=== PATIENT | male | born 1975 | race Caucasian/White ===

== ENCOUNTER → 2024-10-24 10:51 | Outpatient (REF) | payer OTHER, SELFPAY | LOC: HWRAD 10:51 | PROVIDERS: ATTENDING PHYSICIAN Specialist | DX: R80.9 Proteinuria, unspecified (principal); Q61.2 Polycystic kidney, adult type | CPT/HCPCS: 76775 ==

== ENCOUNTER 2025-02-10 08:49 | Inpatient (IN) | payer OTHER, SELFPAY ==
[2025-02-07 17:12] VITALS: BP 93/66
[2025-02-07 17:58] LABS: Hematocrit 40.1 % (39.0-52.0); Hemoglobin 13.3 g/dL (13.0-18.0); Mean Corp Hgb Conc. 33.2 g/dL (33.0-37.0); Mean Corpuscular Volume 91.1 fL (80.0-94.0); Nucleated Red Blood Cells % 0 % (-); Platelet Count 203 10^3/uL (130-400); Red Cell Dist. Width 13.2 % (11.5-14.5); Urine Character Clear (Clear)
[2025-02-07 18:07] LABS: Urine Squamous Cell 0-2 /LPF (Few)
[2025-02-07 18:09] LABS: Urine White Cell 0-2 /HPF (0-5)
[2025-02-07 18:10] LABS: ALT (SGPT) 33 U/L (0-50); AST (SGOT) 44 U/L (17-59); Albumin 4.5 g/dl (3.5-5.0); Alkaline Phosphatase 42 U/L (38-126); Blood Urea Nitrogen 61 mg/dl (9-20); Calcium 9.7 mg/dl (8.4-10.2); Carbon Dioxide 23 mmol/L (22-30); Chloride 107 mmol/L (98-107); Glucose 124 mg/dl (70-99); Lipase 189 U/L (23-300); Potassium 4.8 mmol/L (3.5-5.1); Sodium 138 mmol/L (135-145); Total Protein 7.1 g/dl (6.3-8.2); eGFR 23.88
[2025-02-07 18:24] VITALS: BP 121/73
[2025-02-07 18:26] VITALS: BP 121/73
[2025-02-07 18:31] VITALS: BMI 28.8
[2025-02-07 19:00] VITALS: BP 116/71
--- NOTE | 2025-02-07 19:25 | ED.GENMED ---
History of Present Illness
<Marycruz Madison NP - Last Filed: 02/08/25 00:36>
General
Chief Complaint: Flank Pain
Source: patient
Exam Limitations: none
Time Seen by Provider: 02/07/25 18:30
Nursing documentation reviewed up to this point in time: agreed with
History of Present Illness
History of Present Illness:
Patient to ED with comlaint of severe right abd. pain. Pain started this AM. Denies fever/chills. Pain does not radiate. States he has felt a 'lump' on right side of abd. for many months. No issues until this AM. Brought to ED by spouse for
eval
Past History
<Marycruz Madison NP - Last Filed: 02/08/25 00:36>
Past History
ED Past Medical History: HTN, Hypercholesterolemia and Other (polycystic kidney disease)
Review of Systems
<Marycruz Madison NP - Last Filed: 02/08/25 00:36>
Review of Systems
Allergies reviewed?: Yes
All Other Systems: ROS reviewed and negative except as documented in HPI and ROS
Constitutional: Reports no symptoms
EENT: Reports no symptoms
Respiratory: Reports no symptoms
Cardiac: Reports no symptoms
ABD/GI: Reports abdominal pain (severe right sided abd. pain)
: Reports no symptoms
Musculoskeletal: Reports no symptoms
Skin: Reports no symptoms
Neurological: Reports no symptoms
Psychiatric: Reports no symptoms
Phy Exam
<Marycruz Madison NP - Last Filed: 02/08/25 00:36>
General Physical Exam
General Presentation: moderate distress
General age: appears stated age
General Skin: warm and dry
General Habitus: normal
General Mental: alert
Cardiovascular Exam
Cardiovascular Exam: regular rate/rhythm and no edema
Gastrointestinal Exam
Gastrointestinal Exam: normal bowel sounds, no pulsatile mass, distended and guarding
Palpation: left upper quadrant: Minimal tenderness, left lower quadrant: Minimal tenderness, right upper quadrant: Severe tenderness and right lower quadrant: Severe tenderness
Musculoskeletal Exam
Musculoskeletal Exam: full ROM and neuro vasc intact
Skin Exam
Skin Exam: normal color, warm/dry and no rash
Psychiatric Exam
Psychiatric Exam: normal mood/affect
Course
<Marycruz Madison NP - Last Filed: 02/08/25 00:36>
Orders/Labs/Results
Orders:
Orders
02/07/25 Breakfast
Regular
At Your Request: Full Participation
Does patient need a safe tray?: No
02/07/25 17:14
CT Abd/pelvis Wo Iv Cont Urgent
Comment:
Reason For Exam: R flank pain radiates to ant R abdomen
02/07/25 17:34
Complete Blood Count/With Diff Urgent
Comprehensive Metabolic Panel Urgent
Lipase Urgent
Urinalysis Reflex To Culture Urgent
Date Specimen was Collected: 02/07/25
Time Specimen was Collected: 17:18
Urine Microscopic Reflex Cult Urgent
Urine Culture Urgent
SVETLANA Source: U
Specimen Description:
Date Specimen was Collected: 02/07/25
Time Specimen was Collected: 17:18
02/07/25 19:34
HYDROmorphone [Dilaudid] 0.5 mg IV NOW STA
Ondansetron Injectable [Zofran] 4 mg IV NOW STA
02/07/25 19:52
CefTRIAXone [Rocephin] 1,000 mg IV NOW STA
02/07/25 19:53
NEPHROLOGY CONSULT Urgent
Consulting Provider: Conrad Luna
Was physician already notified: Yes
02/07/25 20:18
Admit/Transfer Patient As Directed
Co-Sign Provider:
Level of Care: Observation services
Assign to:: Medical/Surgical
Physician / Group: kasi sousa
Diagnosis: polycystic kidney disease
Code Status As Directed
Resuscitation Status: Full Code
PRN Pain Medication Management As Directed
May give lesser potent ordered pain med per pt: Yes
preference::
Protocol:: Medication orders for pain may be administered in a
manner that supports deferring to patient preference
when the pt is:
- Requesting an ordered lesser potent pain medication.
Least to most potent pain medications are defined
as: acetaminophen < NSAID < tramadol < opioids
(morphine, oxycodone, hydromorphone).
- Requesting a lesser dose of the same medication IF
ORDERED.
- Requesting a less intrusive route of administration
if both routes are prescribed by the provider (PO <
IV).
02/07/25 21:18
Acetaminophen [Tylenol] 650 mg PO Q4HPRN PRN
Bisacodyl [Dulcolax] 10 mg RECTAL [id number] PRN
Docusate W/Senna [Senokot-S] 1 tablet PO BIDPRN PRN
Polyethylene Glycol Powder [Miralax] 17 grams PO DAILYPRN PRN
tolvaptan (polycys kidney dis) [Jynarque] 1 ea PO DIRECTED
02/07/25 21:18
Activity As Directed
Activity Level: As Tolerated
Pneumatic Compression Sleeves As Directed
Type: Knee high
Vital Signs As Directed
Frequency: Per unit guidelines
DX Deep Vein Thrombosis Video Routine
02/07/25 23:00
HYDROmorphone [Dilaudid] 1 mg IV Q4HPRN PRN
02/08/25 06:00
Basic Metabolic Panel IN AM
Complete Blood Count/No Diff IN AM
02/08/25 08:00
Allopurinol [Zyloprim] 100 mg PO DAILY
Atorvastatin [Lipitor] 40 mg PO DAILY
Fenofibrate 145 [Tricor] 145 mg PO DAILY
Pantoprazole [Protonix] 40 mg PO DAILY
Sertraline HCl [Zoloft] 100 mg PO DAILY
02/08/25 20:00
CefTRIAXone [Rocephin] 1,000 mg IV Q24H
02/09/25 06:00
Basic Metabolic Panel IN AM
02/10/25 06:00
Basic Metabolic Panel IN AM
Abnormal Lab Results
02/07/25
17:34
WBC 12.5 H 10^3/uL
(4.8-10.8)
RBC 4.40 L 10^6/uL
(4.70-6.10)
Abs Immat Gran (auto) 0.1 H 10^3/uL
(0-0.05)
Absolute Neuts (auto) 10.2 H 10^3/uL
(1.4-6.5)
Absolute Lymphs (auto) 1.1 L 10^3/uL
(1.2-3.4)
Absolute Monos (auto) 1.0 H 10^3/uL
(0.1-0.6)
Neutrophils % 81.9 H %
(42.2-75.2)
Lymphocytes % 8.7 L %
(20.5-51.1)
BUN 61 H mg/dl
(9-20)
Creatinine 3.1 H mg/dL
(0.7-1.3)
Glucose 124 H mg/dl
(70-99)
Ur Occult Blood Reflex 1+ A
(Negative)
Urine RBC 3-6 A /HPF
(0-2)
Urine Bacteria (Reflex) Moderate A
(Negative)
Urine Albumin (Reflex) 2+ A
(Neg - Trace)
02/07/25 17:34
02/07/25 17:34
Vital Signs
Initial and Last Documented VS:
Initial Vital Signs
Temp Pulse Resp BP Pulse Ox
98.5 F 87 18 93/66 97
02/07/25 17:12 02/07/25 17:12 02/07/25 17:12 02/07/25 17:12 02/07/25 17:12
Last Documented Vital Signs
Temp Pulse Resp BP Pulse Ox
99.8 F 82 16 116/69 100
02/07/25 21:26 02/07/25 21:26 02/07/25 21:26 02/07/25 21:26 02/07/25 21:56
<Ld Campos, DO - Last Filed: 02/07/25 20:11>
Orders/Labs/Results
Orders:
Orders
02/07/25 Breakfast
Regular
At Your Request: Full Participation
Does patient need a safe tray?: No
02/07/25 17:14
CT Abd/pelvis Wo Iv Cont Urgent
Comment:
Reason For Exam: R flank pain radiates to ant R abdomen
02/07/25 17:34
Complete Blood Count/With Diff Urgent
Comprehensive Metabolic Panel Urgent
Lipase Urgent
Urinalysis Reflex To Culture Urgent
Date Specimen was Collected: 02/07/25
Time Specimen was Collected: 17:18
Urine Microscopic Reflex Cult Urgent
Urine Culture Urgent
SVETLANA Source: U
Specimen Description:
Date Specimen was Collected: 02/07/25
Time Specimen was Collected: 17:18
02/07/25 19:34
HYDROmorphone [Dilaudid] 0.5 mg IV NOW STA
Ondansetron Injectable [Zofran] 4 mg IV NOW STA
02/07/25 19:52
CefTRIAXone [Rocephin] 1,000 mg IV NOW STA
02/07/25 19:53
NEPHROLOGY CONSULT Urgent
Consulting Provider: Conrad Luna
Was physician already notified: Yes
02/07/25 20:18
Admit/Transfer Patient As Directed
Co-Sign Provider:
Level of Care: Observation services
Assign to:: Medical/Surgical
Physician / Group: kasi sousa
Diagnosis: polycystic kidney disease
Code Status As Directed
Resuscitation Status: Full Code
PRN Pain Medication Management As Directed
May give lesser potent ordered pain med per pt: Yes
preference::
Protocol:: Medication orders for pain may be administered in a
manner that supports deferring to patient preference
when the pt is:
- Requesting an ordered lesser potent pain medication.
Least to most potent pain medications are defined
as: acetaminophen < NSAID < tramadol < opioids
(morphine, oxycodone, hydromorphone).
- Requesting a lesser dose of the same medication IF
ORDERED.
- Requesting a less intrusive route of administration
if both routes are prescribed by the provider (PO <
IV).
02/07/25 21:18
Acetaminophen [Tylenol] 650 mg PO Q4HPRN PRN
Bisacodyl [Dulcolax] 10 mg RECTAL [id number] PRN
Docusate W/Senna [Senokot-S] 1 tablet PO BIDPRN PRN
Polyethylene Glycol Powder [Miralax] 17 grams PO DAILYPRN PRN
tolvaptan (polycys kidney dis) [Jynarque] 1 ea PO DIRECTED
02/07/25 21:18
Activity As Directed
Activity Level: As Tolerated
Pneumatic Compression Sleeves As Directed
Type: Knee high
Vital Signs As Directed
Frequency: Per unit guidelines
DX Deep Vein Thrombosis Video Routine
02/07/25 23:00
HYDROmorphone [Dilaudid] 1 mg IV Q4HPRN PRN
02/08/25 06:00
Basic Metabolic Panel IN AM
Complete Blood Count/No Diff IN AM
02/08/25 08:00
Allopurinol [Zyloprim] 100 mg PO DAILY
Atorvastatin [Lipitor] 40 mg PO DAILY
Fenofibrate 145 [Tricor] 145 mg PO DAILY
Pantoprazole [Protonix] 40 mg PO DAILY
Sertraline HCl [Zoloft] 100 mg PO DAILY
02/08/25 20:00
CefTRIAXone [Rocephin] 1,000 mg IV Q24H
02/09/25 06:00
Basic Metabolic Panel IN AM
02/10/25 06:00
Basic Metabolic Panel IN AM
Abnormal Lab Results
02/07/25
17:34
WBC 12.5 H 10^3/uL
(4.8-10.8)
RBC 4.40 L 10^6/uL
(4.70-6.10)
Abs Immat Gran (auto) 0.1 H 10^3/uL
(0-0.05)
Absolute Neuts (auto) 10.2 H 10^3/uL
(1.4-6.5)
Absolute Lymphs (auto) 1.1 L 10^3/uL
(1.2-3.4)
Absolute Monos (auto) 1.0 H 10^3/uL
(0.1-0.6)
Neutrophils % 81.9 H %
(42.2-75.2)
Lymphocytes % 8.7 L %
(20.5-51.1)
BUN 61 H mg/dl
(9-20)
Creatinine 3.1 H mg/dL
(0.7-1.3)
Glucose 124 H mg/dl
(70-99)
Ur Occult Blood Reflex 1+ A
(Negative)
Urine RBC 3-6 A /HPF
(0-2)
Urine Bacteria (Reflex) Moderate A
(Negative)
Urine Albumin (Reflex) 2+ A
(Neg - Trace)
02/07/25 17:34
02/07/25 17:34
Vital Signs
Initial and Last Documented VS:
Initial Vital Signs
Temp Pulse Resp BP Pulse Ox
98.5 F 87 18 93/66 97
02/07/25 17:12 02/07/25 17:12 02/07/25 17:12 02/07/25 17:12 02/07/25 17:12
Last Documented Vital Signs
Temp Pulse Resp BP Pulse Ox
99.8 F 82 16 116/69 100
02/07/25 21:26 02/07/25 21:26 02/07/25 21:26 02/07/25 21:26 02/07/25 21:56
<Marycruz Madison NP - Last Filed: 02/08/25 00:36>
*Radiology
Radiology exam reviewed: radiology read reviewed
*Pulse Oximetry
SaO2: 97
Oxygen Mode of Delivery: Room air
Patient hypoxic: no
*Critical Care Note
Total Time (30-74mins, 75-104mins- exclusive of procedures): Not Applicable
<Marycruz Madison NP - Last Filed: 02/08/25 00:36>
Update Note
Update Note:
Patient to ED with severe right sided abd. pain. Pain started this AM. History of polycystic kidney disease, follows with Dr. Luna. CT tonight: perinephric soft tissue stranding of gerota's fascia possible related to infection/inflammation. VSS,
he remains afebrile. WBC 12.5. Creat 3.1 (outpatient lab from december 2024 2.84) Case discussed with dr. campos who also evaluated this patient. WIll admit to hospitalist. Dr. Luna consulted, will follow.
ED Attending Note
<Marycruz Madison, LEGAL WORD PROCESSOR - Last Filed: 02/08/25 00:36>
-
Portions of this chart may have been created with voice recognition software.� Occasional wrong word or��sound alike� substitutions may have occurred due to the inherent limitations of voice recognition software.
<Ld Campos DO - Last Filed: 02/07/25 20:11>
ED Attending Note
Patient seen and examined by attending physician: Yes
I performed the substantive portion of visit, reviewed & personally made and approve the management plan that is documented in note by myself or YUSUF.: Yes
ED Attending Note:
Seen with LEGAL WORD PROCESSOR examined independently 49-year male polycystic kidney flank pain fevers labs noted CT noted perhaps a ruptured cyst
Discharge Plan
Departure
Patient Disposition: Admit
Date of Disposition: 02/07/25
Time of Disposition: 19:46
Presentation/result/management discussed w/ accepting MD/DO: Hospitalist
Condition: Fair
Covid-19: Not Applicable
Discharge Problem:
Abdominal pain, Polycystic kidney disease
Interventions
Interventions:
*Risk Screen - Suicide Last Done: 02/07/25 17:12
*General Assessment Last Done: 02/07/25 17:12
*Neglect/Abuse Screening Last Done: 02/07/25 18:31
*ED- Fall Risk Assessment Last Done: 02/07/25 18:31
*ED COVID-19 Vaccine History Last Done: 02/07/25 17:12
*ED Influenza Vaccine History Last Done: 02/07/25 17:12
*Nursing Disposition Last Done: 02/07/25 21:19
OM-Ndwady-Tlidnqklbt Assessment Last Done: 02/07/25 18:32
ED-Male Genitourinary Assessment Last Done: 02/07/25 18:32
[2025-02-07] MEDS: DILAUDID 0.5 MG IV (19:41)
[2025-02-07] MEDS: ZOFRAN 4 MG IV (19:41)
--- NOTE | 2025-02-07 19:54 | HPS.HSE ---
Family Physician
-
Family Physician:
Chief Complaint
-
right sided abdominal apin
History of Present Illness
49 year old with PMH for stage 4 polycystic kidney disease, HLD< HTN presented to us with severe right sided abdominal pain which started today morning. he was nauseous due to the pain and was having trouble breathing.patient stated right sided
abdominal lumps for 2 year which was monitored by his nephrology. Denies fever/chills. he was dizzy. denied chest pain. denied dysuria or hematuria
CT with the impression of Polycystic kidney disease. Innumerable bilateral simple and complex/hyperdense cysts.
No renal or ureteral calculus and no obstructive uropathy.
On the right, there is a linear band of perinephric soft tissue stranding and thickening of Gerota's fascia adjacent to the anterior mid pole and lower pole the right kidney. This could be related to infection/inflammation in the proper clinical
setting, or perhaps related to cyst rupture.
In the anterior lower pole of the right kidney, a low-attenuation mass measuring 6.3 cm transverse is demonstrated, with internal rounded component of increased attenuation measuring 2.6 cm. This could represent a blood clot within a hemorrhagic
cyst. A mass with a solid internal component would be difficult to exclude with certainty. Recommend follow-up nonemergent MRI characterization.
Patient received a dose of ceftriaxone, Dilaudid, Zofran in the ER. Admitting for further management
Medical History
Past Medical History
Past Medical History: Reports Other
Additional Past Medical History:
Hypertension, hyperlipidemia, prediabetes, GERD, anxiety, ventral hernia, periumbilical hernia, kidney stone
Past Surgical History: Reports Other
Additional Past Surgical History:
kidney stone extraction
hernia repair
Social History
Tobacco: Non-smoker
Alcohol: Occasional
Personal:
Living: With Family
Family History
Family History: Not pertinent
Allergies / Home Medications
Allergies reflects when Allergies were last updated in [facility].
Home Medications with original date entered in [facility]
Allergy/Medication List:
Allergies
Allergy/AdvReac Type Severity Reaction Status Date / Time
No Known Allergies Allergy Verified 02/07/25 18:31
Review of Systems
-
Constitutional: Reports No Symptoms
EENT: Reports No Symptoms
Respiratory: Reports No Symptoms
Cardiac: Reports No Symptoms
Abdomen/GI: Reports Abdominal Pain and Nausea
: Reports No Symptoms
Musculoskeletal: Reports No Symptoms
Skin: Reports No Symptoms
Neurological: Reports No Symptoms
Endocrine: Reports No Symptoms
Hematologic/Lymphatic: Reports No Symptoms
Psych: Reports No Symptoms
Physical Exam
Vital Signs
Vital Signs
Temp Pulse Resp BP Pulse Ox
99.1 F 71 16 116/71 98
02/07/25 18:26 02/07/25 18:26 02/07/25 18:26 02/07/25 19:00 02/07/25 19:45
Physical Exam
General: Well Developed, Well Nourished and No Apparent Distress
HEENT: NormoCephalic, Moist mucous membranes and Atraumatic
Respiratory: Clear
Cardiac: S1/S2 and Regular Rhythm; No Murmur or Rub
GI: Soft, Non Tender, Non Distended, Normal Bowel Sounds and Other (lump on the right side of the abdomen); No Organomegaly
Rectal: Deferred by Provider
Musculoskeletal: No Clubbing, No Cyanosis and No Edema
Skin: No Rash
Neuro: AO x 3 and Nonfocal/grossly intact
Psych: Calm
Laboratory Results
-
02/07/25 17:34
02/07/25 17:34
Laboratory Results
Total Bilirubin 0.8 mg/dl (0.2-1.3) 02/07/25 17:34
AST 44 U/L (17-59) 02/07/25 17:34
ALT 33 U/L (0-50) 02/07/25 17:34
Alkaline Phosphatase 42 U/L (38-126) 02/07/25 17:34
Lipase 189 U/L (23-300) 02/07/25 17:34
Data Reviewed
-
CT Scan: Report Reviewed by me
Lab Data: Labs Reviewed by me
Impression/Plan
-
# Severe abdominal pain
# Concern for blood clot within a hemorrhagic cyst
#hxt of stage IV polycystic kidney disease
- WBCs 12.5
-cr 3.1
-IV ceftriaxone continued
-Dilaudid p.o. for pain
-tolvaptan continued
-nephrology consulted
- CT with impression of Polycystic kidney disease. Innumerable bilateral simple and complex/hyperdense cysts. No renal or ureteral calculus and no obstructive uropathy.On the right, there is a linear band of perinephric soft tissue stranding and
thickening of Gerota's fascia adjacent to the anterior mid pole and lower pole the right kidney. This could be related to infection/inflammation in the proper clinical setting, or perhaps related to cyst rupture.
In the anterior lower pole of the right kidney, a low-attenuation mass measuring 6.3 cm transverse is demonstrated, with internal rounded component of increased attenuation measuring 2.6 cm. This could represent a blood clot within a hemorrhagic
cyst. A mass with a solid internal component would be difficult to exclude with certainty. Recommend follow-up nonemergent MRI characterization.
# Essential hypertension
- At present hold lisinopril
# Hyperlipidemia
- Statin, fenofibrate continued
# Gout
- Allopurinol continued
# Anxiety
- Sertraline continued
# GERD
- PPI continued
# DVT prophylaxis
- SCDs CODE STATUS
# CODE STATUS
- Full code
--- NOTE | 2025-02-07 20:01 | W.PN.UPDATE ---
Update Note
Progress Note Update
This note serves as an addendum to the H&P by scooter mechanic YUSUF�
Subha DICK�
HPI
49M HX PCK, HTN, HLD seen at ER:
- BiB spouse
- severe R sided abdomenal non radiating pain
- acut onset of pain this AM.
- Denies fever/chills.
PHX; see above
Relevant VS
Temp Pulse Resp BP Pulse Ox
99.1 F 71 16 116/71 98
02/07/25 18:26 02/07/25 18:26 02/07/25 18:26 02/07/25 19:00 02/07/25 19:45
PE
Gen: moderately distress with pain
HEENT:anicteric
Neck: supple
Lungs: CTA
Cor: RRR S1 S2
Abdomen: Severe tenderness RLQ, Minimal tenderness,LLQ
MARKETING MGR: AAO3
MS: no edema
Relevant data�
02/07/25
17:34
WBC 12.5 H
Hgb 13.3
Sodium 138
Potassium 4.8
Carbon Dioxide 23
BUN 61 H
Creatinine 3.1 H
eGFR 23.88
[address] Abd/pelvis Wo Iv Cont
- Polycystic kidney disease. Innumerable bilateral simple and complex/hyperdense cysts.
- No renal or ureteral calculus and no obstructive uropathy.
- On the right, there is a linear band of perinephric soft tissue stranding and thickening of Gerota's fascia adjacent to the anterior mid pole and lower pole the right kidney. This could be related to infection/inflammation in the proper clinical
setting, or perhaps related to cyst rupture.
- In the anterior lower pole of the right kidney, a low-attenuation mass measuring 6.3 cm transverse is demonstrated, with internal rounded component of increased attenuation measuring 2.6 cm. This could represent a blood clot within a hemorrhagic
cyst.
A mass with a solid internal component would be difficult to exclude with certainty. Recommend follow-up nonemergent MRI characterization.
NO PRIOR hospitalist admission:
ASSESSMENT & PLAN
Pending Rx reconciliation
Concerning for painful R sided acute hemorrhagic +/_ clot cysts of PCK
Questionable infection/inflammation of perinephric soft tissue
- Empiric IV CFTZ
- Narcotic analgesia
- Anti emetics PRN
- Renal consult ( Known to Dr Luna)
Secondary HTN due to PCK
- Hold Lisinopril - due to eGFR 23
- await renal suggestion for BP control
Suspect CKD due to PCK
with element of VINCENZO due to acute hemorrhagic cyst
- current Cr 3.2 - baseline hi 2s
- observe Cr
DVT Px: SCD
Full Code:
OBS MS
[2025-02-07] MEDS: ROCEPHIN 1000 MG IV (20:19)
[2025-02-07 21:21] VITALS: BMI 28.8
[2025-02-07 21:26] VITALS: BP 116/69
--- NOTE | 2025-02-07 21:45 | PTCARENOTE ---
Pt arrived to unit at 2114 from ED on stretcher. Pt ambulated to bed without assistance; hunched posture, gait steady. Pt endorses pain with erect posture, deep inspiration & ambulation. Abdomen is soft & tender, right abdomen warm to touch, left
abdomen temperature consistent with rest of body-pt is afebrile. VSS, See Nursing Shift Assx. Pt updated on plan of care for night, fiance at bedside; both are agreeable to POC. Pt states no further needs at this time.
[2025-02-08] MEDS: DILAUDID 1 MG IV ×6 (00:15→20:04)
[2025-02-08 07:23] LABS: Hematocrit 37.4 % (39.0-52.0); Hemoglobin 12.1 g/dL (13.0-18.0); Mean Corp Hgb Conc. 32.4 g/dL (33.0-37.0); Mean Corpuscular Volume 92.3 fL (80.0-94.0); Platelet Count 180 10^3/uL (130-400); Red Cell Dist. Width 13.5 % (11.5-14.5)
[2025-02-08 07:35] VITALS: BP 100/63
[2025-02-08 08:15] LABS: Blood Urea Nitrogen 55 mg/dl (9-20); Calcium 8.9 mg/dl (8.4-10.2); Carbon Dioxide 22 mmol/L (22-30); Chloride 111 mmol/L (98-107); Estimated Creatinine Clearance 32 ml/min; Glucose 122 mg/dl (70-99); Potassium 4.4 mmol/L (3.5-5.1); Sodium 142 mmol/L (135-145); eGFR 23.88
[2025-02-08] MEDS: PROTONIX 40 MG PO (08:42)
[2025-02-08] MEDS: TRICOR 145 MG PO (08:42)
[2025-02-08] MEDS: ZOLOFT 100 MG PO (08:42)
[2025-02-08] MEDS: ZYLOPRIM 100 MG PO (08:42)
[2025-02-08] MEDS: LIPITOR 40 MG PO (08:42)
--- NOTE | 2025-02-08 10:59 | CM ---
CM following re: discharge planning.
Reviewed pt's chart, met with pt and pt's fiance at bedside.
Pt is a 49 year old male, admitted with OBS status and primary dx of Severe abdominal pain. PMH: tage 4 polycystic kidney disease, HLD, HTN. OBS status reviewed with the pt, OBS letter placed on chart, pt has a copy.
Pt reports he lives with fiance in a condo, no steps to enter, has 2 supportive children. 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
PCP: Pt stated his PCP just retired and he is looking for a new PCP. Pt stated he has resources of PCP offices.
Pharmacy: [facility].
D/C plan: home with anticipated no needs.
CM will follow with discharge plan updates as hospitalization progresses
--- NOTE | 2025-02-08 11:24 | W.PN.HOSP.TC ---
Today's Communication/Plan
-
monitor vitals
see plan
still in pain; cw dilaudid
start IVF
nephrology consulted
monitor renal function
Assessment / Plan
Assessment / Plan
General: Well Developed, Well Nourished and No Apparent Distress
HEENT: NormoCephalic, Moist mucous membranes and Atraumatic
Respiratory: Clear
Cardiac: S1/S2 and Regular Rhythm; No Murmur or Rub
GI: Soft, Non Tender, Non Distended, Normal Bowel Sounds and Other (lump on the right side of the abdomen)
Musculoskeletal:No Edema
Neuro: AO x 3 and Nonfocal/grossly intact
Psych: Calm
Severe abdominal pain
still in lot of pain
# Concern for blood clot within a hemorrhagic cyst
#hxt of stage IV polycystic kidney disease
- WBCs 12.5
-cr 3.1
-IV ceftriaxone continued
-Dilaudid prn for pain
-nephrology consulted
- CT with impression of Polycystic kidney disease. Innumerable bilateral simple and complex/hyperdense cysts. No renal or ureteral calculus and no obstructive uropathy.On the right, there is a linear band of perinephric soft tissue stranding and
thickening of Gerota's fascia adjacent to the anterior mid pole and lower pole the right kidney. This could be related to infection/inflammation in the proper clinical setting, or perhaps related to cyst rupture.
In the anterior lower pole of the right kidney, a low-attenuation mass measuring 6.3 cm transverse is demonstrated, with internal rounded component of increased attenuation measuring 2.6 cm. This could represent a blood clot within a hemorrhagic
cyst. A mass with a solid internal component would be difficult to exclude with certainty. Recommend follow-up nonemergent MRI characterization.
follow urine cx; Ua doesnt seem to be impressive
hx of kidney stones; denies dysuria or hematuria
# Essential hypertension
- At present hold lisinopril
# Hyperlipidemia
- Statin, fenofibrate continued
# Gout
- Allopurinol continued
# Anxiety
- Sertraline continued
# GERD
- PPI continued
# DVT prophylaxis
- SCDs CODE STATUS
# CODE STATUS
- Full code
Anticipated Discharge: 24 - 48 hours
Subjective/Interval History
-
Date of Service: February 08, 2025
has pain
Objective Data
-
Labs:
Laboratory Results
02/08/25
06:47
WBC 8.4
Hgb 12.1 L
Hct 37.4 L
Plt Count 180
Sodium 142
Potassium 4.4
Chloride 111 H
Carbon Dioxide 22
BUN 55 H
Creatinine 3.1 H
Glucose 122 H
Calcium 8.9
Vital Signs:
Vital Signs
Temp Pulse Resp BP Pulse Ox
98.3 F 77 16 100/63 96
02/08/25 07:35 02/08/25 07:35 02/08/25 07:35 02/08/25 07:35 02/08/25 07:35
I&O
02/07/25 02/08/25 02/09/25
06:59 06:59 06:59
Output Total 480 / 480
Balance -480 / -480
[2025-02-08] MEDS: NSS 1000 IV (11:46)
--- NOTE | 2025-02-08 15:00 | W.CON.NEPH ---
Consultation
-
Date/Time Consultation Requested: 02/08/2025 7:30 AM
Date/Time Consultation Performed: 02/08/2025 3:00 PM
Requesting Provider: Dr. Hendrickson
Performing Provider: Dr. Dc
Reason for Consultation: PKD/CKD stage IV/flank pain
Medical History
-
Chief Complaint: Polycystic kidney disease/CKD stage IV/flank pain
History of Present Illness:
49 year old with PMH for stage 4 polycystic kidney disease (baseline creatinine ~ ) on tolvaptan, HLD on statin therapy, HTN (on lisinopril) presented to us with severe right sided abdominal pain which started today morning. he was nauseous due to
the pain and was having trouble breathing.patient stated right sided abdominal lumps for 2 year which was monitored by his nephrology. Denies fever/chills. he was dizzy. denied chest pain. denied dysuria or hematuria
CT with the impression of Polycystic kidney disease. Innumerable bilateral simple and complex/hyperdense cysts.
No renal or ureteral calculus and no obstructive uropathy.
On the right, there is a linear band of perinephric soft tissue stranding and thickening of Gerota's fascia adjacent to the anterior mid pole and lower pole the right kidney. This could be related to infection/inflammation in the proper clinical
setting, or perhaps related to cyst rupture.
In the anterior lower pole of the right kidney, a low-attenuation mass measuring 6.3 cm transverse is demonstrated, with internal rounded component of increased attenuation measuring 2.6 cm. This could represent a blood clot within a hemorrhagic
cyst. A mass with a solid internal component would be difficult to exclude with certainty. Recommend follow-up nonemergent MRI characterization
Nephrology was consulted for chronic kidney disease stage IV with associated hypertension in the setting of polycystic kidney disease..
Past Medical History
Hypertension, hyperlipidemia, prediabetes, GERD, anxiety, ventral hernia, periumbilical hernia, kidney stone
CKD stage IV due to underlying polycystic kidney disease
Additional Past Surgical History:
kidney stone extraction
hernia repair
Social History
Social History
Tobacco: Non-Smoker
Alcohol: Occasional
Personal:
Living: With Family
Family History
PKD mother and sisters
Allergies / Home Medications
Allergy/AdvReac Type Severity Reaction Status Date / Time
No Known Allergies Allergy Verified 02/07/25 18:31
�Medication �Instructions �Recorded �Confirmed �Type
allopurinol 100 mg tablet 100 mg PO DAILY Gout 02/07/25 02/07/25 History
atorvastatin 40 mg tablet 40 mg PO DAILY High Cholesterol 02/07/25 02/07/25 History
fenofibric acid (choline) 135 mg 135 mg PO DAILY High Cholesterol 02/07/25 02/07/25 History
capsule,delayed release
lisinopril 20 mg tablet 20 mg PO DAILY Blood Pressure 02/07/25 02/07/25 History
pantoprazole 40 mg tablet,delayed 40 mg PO DAILY Gastrointestinal 02/07/25 02/07/25 History
release Issue
sertraline 100 mg tablet 100 mg PO DAILY Mental 02/07/25 02/07/25 History
Health/Anxiety
tolvaptan (polycys kidney dis) 60 1 ea PO DIRECTED Kidney Disease 02/07/25 02/07/25 History
mg (AM)/30 mg (PM) tablets
(Jynarque)
Review of Systems
-
History Source: Patient
All other systems: Negative unless noted
Constitutional: No Symptoms
EENT: No Symptoms
Respiratory: No Symptoms
Cardiac: No Symptoms
Abdomen/GI: Abdominal Pain
: Flank Pain (Right flank pain)
Musculoskeletal: No Symptoms
Skin: No Symptoms
Neurological: No Symptoms
Physical Exam
Vital Signs
Vital Signs
Temp Pulse Resp BP Pulse Ox
98.3 F 77 16 100/63 96
02/08/25 07:35 02/08/25 07:35 02/08/25 07:35 02/08/25 07:35 02/08/25 07:35
Lab Results
02/08/25 06:47
02/08/25 06:47
WBC 8.4 10^3/uL (4.8-10.8) 02/08/25 06:47
RBC 4.05 10^6/uL (4.70-6.10) L 02/08/25 06:47
Hgb 12.1 g/dL (13.0-18.0) L 02/08/25 06:47
Hct 37.4 % (39.0-52.0) L 02/08/25 06:47
Plt Count 180 10^3/uL (130-400) 02/08/25 06:47
Sodium 142 mmol/L (135-145) 02/08/25 06:47
Potassium 4.4 mmol/L (3.5-5.1) 02/08/25 06:47
Chloride 111 mmol/L (98-107) H 02/08/25 06:47
Carbon Dioxide 22 mmol/L (22-30) 02/08/25 06:47
BUN 55 mg/dl (9-20) H 02/08/25 06:47
Creatinine 3.1 mg/dL (0.7-1.3) H 02/08/25 06:47
eGFR 23.88 02/08/25 06:47
Glucose 122 mg/dl (70-99) H 02/08/25 06:47
Calcium 8.9 mg/dl (8.4-10.2) 02/08/25 06:47
Albumin 4.5 g/dl (3.5-5.0) 02/07/25 17:34
Physical Exam
General: AOx3, Nontoxic , NAD
HEENT: PERRL, EOMI, Anicteric, Conjunctivae Clear, Ear/Nose Intact, Hearing Normal, Oropharynx Clear/Moist, Dentition Intact, Facial Symmetry, Neck Supple, Neck: Trachea Midline, No JVD and No Thyromegaly, no Bruits
Respiratory: Clear to auscultation bilaterally with normal lung exersion
Cardiac: S1/S2 and Regular Rate/Rhythm
Breast: Deferred by me
Abdomen: palpable right kidney; pain with palpation alone right anterior abdomen
Rectal: Deferred by Provider
Genito-urinary: No Costovertebral Tenderness
Extremities: No Clubbing, No Cyanosis and No Edema
Skin: No Rash or open lesions
Neuro: Nonfocal/Grossly Intact, CN II-XII (Intact) and Strength (Musculoskeletal exam 5 out of 5 both upper and lower extremities)
Hematologic/Lymphatic: No Cervical Lymphadenopathy, No Submandibular Lymphadenopathy and No Supraclavicular Lymphadenopathy
Psych: Mood/affect pleasant, Insight/judgement good and Appropriate
Vascular: plus 2 pedal and radial pulses
Data Reviewed
-
CT Scan: Report Reviewed by me (Abdominal CT with noted findings per HPI)
Labs: Labs Reviewed by me (BMP CBC urinalysis)
Old Records: Reviewed (Reviewed office records from 2024 and )
Assessment/Plan
-
Impression:
Abdominal and right flank pain: Suspected due to ruptured cyst
Polycystic kidney disease on chronic tolvaptan therapy
CKD stage IV
Hypertension
Dyslipidemia
GERD
Plan
-Pain control, IV fluids
- maintain lisinopril for hypertension control
-obtain MRI to better visualize abdominal pathology
-differentlal includes : cyst rupture, enlarging kidney with herniation, stone, other intra-abdominal process
[2025-02-08 15:03] VITALS: BP 116/75
[2025-02-08] MEDS: TYLENOL 650 MG PO (16:08)
[2025-02-08] MEDS: ROCEPHIN 1000 MG IV (20:06)
[2025-02-08] MEDS: STERILE WATER FOR INJECTION 10 ML IV (20:06)
[2025-02-08 23:21] VITALS: BP 104/67
[2025-02-09] MEDS: NSS 1000 IV ×2 (01:29→16:41)
[2025-02-09 06:54] LABS: Hematocrit 36.6 % (39.0-52.0); Hemoglobin 12.0 g/dL (13.0-18.0); Mean Corp Hgb Conc. 32.8 g/dL (33.0-37.0); Mean Corpuscular Volume 94.3 fL (80.0-94.0); Nucleated Red Blood Cells % 0 % (-); Platelet Count 179 10^3/uL (130-400); Red Cell Dist. Width 13.1 % (11.5-14.5)
[2025-02-09 07:05] VITALS: BP 108/72
[2025-02-09 07:09] LABS: Blood Urea Nitrogen 45 mg/dl (9-20); Calcium 9.2 mg/dl (8.4-10.2); Carbon Dioxide 26 mmol/L (22-30); Chloride 109 mmol/L (98-107); Estimated Creatinine Clearance 33 ml/min; Glucose 113 mg/dl (70-99); Potassium 5.1 mmol/L (3.5-5.1); Sodium 140 mmol/L (135-145); eGFR 24.84
[2025-02-09] MEDS: TRICOR 145 MG PO (08:13)
[2025-02-09] MEDS: LIPITOR 40 MG PO (08:13)
[2025-02-09] MEDS: ZOLOFT 100 MG PO (08:13)
[2025-02-09] MEDS: ZYLOPRIM 100 MG PO (08:13)
[2025-02-09] MEDS: PROTONIX 40 MG PO (08:13)
[2025-02-09] MEDS: DILAUDID 1 MG IV ×4 (08:16→22:54)
[2025-02-09] MEDS: SENOKOT-S 1 TABLET PO (08:20)
--- NOTE | 2025-02-09 11:28 | W.PN.NEPH.PH ---
Today's Communication / Plan
-
Awaiting MRI of abdomen
Assessment/Plan
-
Impression:
Abdominal and right flank pain: Suspected due to ruptured cyst
Polycystic kidney disease on chronic tolvaptan therapy
CKD stage IV
Hypertension
Dyslipidemia
GERD
Plan
-Creatinine stable at baseline 3
-Pain control
- maintain lisinopril for hypertension control
-obtain MRI to better visualize abdominal pathology
-differentlal includes : cyst rupture, enlarging kidney with herniation, stone, other intra-abdominal process
-
-
Date of Service: February 09, 2025
CC / HPI / ROS
-
Chief Complaint:
CKD stage IV polycystic kidney disease
Abdominal pain
History of Present Illness:
Creatinine remained stable at 3
Blood pressure stable on lisinopril
Hemoglobin stable
Review of Systems:
Right anterior abdominal pain persist
No macroscopic hematuria
No fevers
No chest pain or shortness of breath
Labs
-
Labs:
WBC 9.1 10^3/uL (4.8-10.8) 02/09/25 05:53
RBC 3.88 10^6/uL (4.70-6.10) L 02/09/25 05:53
Hgb 12.0 g/dL (13.0-18.0) L 02/09/25 05:53
Hct 36.6 % (39.0-52.0) L 02/09/25 05:53
Plt Count 179 10^3/uL (130-400) 02/09/25 05:53
Sodium 140 mmol/L (135-145) 02/09/25 05:53
Potassium 5.1 mmol/L (3.5-5.1) 02/09/25 05:53
Chloride 109 mmol/L (98-107) H 02/09/25 05:53
Carbon Dioxide 26 mmol/L (22-30) 02/09/25 05:53
BUN 45 mg/dl (9-20) H 02/09/25 05:53
Creatinine 3.0 mg/dL (0.7-1.3) H 02/09/25 05:53
eGFR 24.84 02/09/25 05:53
Glucose 113 mg/dl (70-99) H 02/09/25 05:53
Calcium 9.2 mg/dl (8.4-10.2) 02/09/25 05:53
Albumin 4.5 g/dl (3.5-5.0) 02/07/25 17:34
Physical Exam
-
Vital Signs:
Vital Signs
Temp Pulse Resp BP Pulse Ox
99.0 F 79 18 108/72 96
02/09/25 07:05 02/09/25 07:05 02/09/25 07:05 02/09/25 07:05 02/09/25 07:05
Cardiovascular:: Regular rate and rhythm
Respiratory:: Bilateral: CTA
Lung Excursion:: Normal
Abdomen:: Distended, Soft and Tender (Palpably tender along the right anterior abdominal quadrant)
Bowel Sounds:: Normal
Extremity Edema:: None: Bilateral:
Powell Catheter: No
--- NOTE | 2025-02-09 11:29 | W.PN.HOSP.TC ---
Today's Communication/Plan
-
monitor vitals
see plan
continues to require IV dilaudid as in pain
MRI abdomen pending
monitor renal function
Assessment / Plan
Assessment / Plan
General: Well Developed, Well Nourished and No Apparent Distress
HEENT: NormoCephalic, Moist mucous membranes and Atraumatic
Respiratory: Clear
Cardiac: S1/S2 and Regular Rhythm; No Murmur or Rub
GI: Soft, Non Tender, Non Distended, Normal Bowel Sounds and Other (lump on the right side of the abdomen)
Musculoskeletal:No Edema
Neuro: AO x 3 and Nonfocal/grossly intact
Psych: Calm
Severe abdominal pain
still in lot of pain; continues to require IV dilaudid
# Concern for blood clot within a hemorrhagic cyst
#hxt of stage IV polycystic kidney disease
- WBCs 12.5
-cr 3 today; per nephrology baseline around high 2's
-IV ceftriaxone continued
-Dilaudid prn for pain
-nephrology following; Discussed with nephrology. MRI abdomen ordered
- CT with impression of Polycystic kidney disease. Innumerable bilateral simple and complex/hyperdense cysts. No renal or ureteral calculus and no obstructive uropathy.On the right, there is a linear band of perinephric soft tissue stranding and
thickening of Gerota's fascia adjacent to the anterior mid pole and lower pole the right kidney. This could be related to infection/inflammation in the proper clinical setting, or perhaps related to cyst rupture.
In the anterior lower pole of the right kidney, a low-attenuation mass measuring 6.3 cm transverse is demonstrated, with internal rounded component of increased attenuation measuring 2.6 cm. This could represent a blood clot within a hemorrhagic
cyst. A mass with a solid internal component would be difficult to exclude with certainty. Recommend follow-up nonemergent MRI characterization.
follow urine cx; Ua doesnt seem to be impressive. urine cx no growth
hx of kidney stones; denies dysuria or hematuria
# Essential hypertension
- At present hold lisinopril
# Hyperlipidemia
- Statin, fenofibrate continued
# Gout
- Allopurinol continued
hx of umbilical hernia repair
monitor
# Anxiety
- Sertraline continued
# GERD
- PPI continued
# DVT prophylaxis
- SCDs CODE STATUS
# CODE STATUS
- Full code
Anticipated Discharge: 24 - 48 hours
Subjective/Interval History
-
Date of Service: February 09, 2025
still has pain
Objective Data
-
Labs:
Laboratory Results
02/09/25
05:53
WBC 9.1
Hgb 12.0 L
Hct 36.6 L
Plt Count 179
Sodium 140
Potassium 5.1
Chloride 109 H
Carbon Dioxide 26
BUN 45 H
Creatinine 3.0 H
Glucose 113 H
Calcium 9.2
Vital Signs:
Vital Signs
Temp Pulse Resp BP Pulse Ox
99.0 F 79 18 108/72 96
02/09/25 07:05 02/09/25 07:05 02/09/25 07:05 02/09/25 07:05 02/09/25 07:05
I&O
02/08/25 02/09/25 02/10/25
06:59 06:59 06:59
Intake Total 3000 / 3000
Output Total 480 / 480
Balance -480 / -480 3000 / 3000
--- NOTE | 2025-02-09 11:45 | CM ---
Chart reviewed patient to return to home when stable, no needs.
Plan; Home no needs when stable.
[2025-02-09] MEDS: MIRALAX 17 GRAMS PO (14:24)
[2025-02-09 16:09] VITALS: BP 120/71
[2025-02-09] MEDS: ROCEPHIN 1000 MG IV (19:59)
[2025-02-09] MEDS: STERILE WATER FOR INJECTION 10 ML IV (19:59)
[2025-02-09 23:00] VITALS: BP 124/71
[2025-02-10] MEDS: DILAUDID 1 MG IV ×4 (04:20→21:56)
[2025-02-10] MEDS: NSS 1000 IV ×2 (04:22→20:50)
[2025-02-10 07:05] VITALS: BP 122/75
[2025-02-10] MEDS: ZOLOFT 100 MG PO (07:51)
[2025-02-10] MEDS: PROTONIX 40 MG PO (07:51)
[2025-02-10] MEDS: LIPITOR 40 MG PO (07:51)
[2025-02-10] MEDS: TRICOR 145 MG PO (07:51)
[2025-02-10] MEDS: ZYLOPRIM 100 MG PO (07:52)
--- NOTE | 2025-02-10 08:06 | VATNOTE ---
Pt. refused offer of spandage dressing for IV site. Stated 'that was annoying'
[2025-02-10 09:38] LABS: Hematocrit 35.9 % (39.0-52.0); Hemoglobin 11.8 g/dL (13.0-18.0); Mean Corp Hgb Conc. 32.9 g/dL (33.0-37.0); Mean Corpuscular Volume 93.0 fL (80.0-94.0); Nucleated Red Blood Cells % 0 % (-); Platelet Count 173 10^3/uL (130-400); Red Cell Dist. Width 12.8 % (11.5-14.5)
[2025-02-10 10:27] LABS: Blood Urea Nitrogen 41 mg/dl (9-20); Calcium 8.5 mg/dl (8.4-10.2); Carbon Dioxide 24 mmol/L (22-30); Chloride 110 mmol/L (98-107); Estimated Creatinine Clearance 38 ml/min; Glucose 137 mg/dl (70-99); Potassium 4.8 mmol/L (3.5-5.1); Sodium 140 mmol/L (135-145); eGFR 29.50
--- NOTE | 2025-02-10 10:45 | W.PN.HOSP.TC ---
Today's Communication/Plan
-
monitor vitals
see plan
cw pain control
MRI pending
nephrology following
Assessment / Plan
Assessment / Plan
General: Well Developed, Well Nourished and No Apparent Distress
HEENT: NormoCephalic, Moist mucous membranes and Atraumatic
Respiratory: Clear
Cardiac: S1/S2 and Regular Rhythm; No Murmur or Rub
GI: Soft, Non Tender, Non Distended, Normal Bowel Sounds and Other (lump on the right side of the abdomen)
Musculoskeletal:No Edema
Neuro: AO x 3 and Nonfocal/grossly intact
Psych: Calm
Severe abdominal pain
still in lot of pain; continues to require IV dilaudid
# Concern for blood clot within a hemorrhagic cyst
#hxt of stage IV polycystic kidney disease
- WBCs 12.5 on admission
-cr 2.6 today; per nephrology baseline around high 2's
-IV ceftriaxone continued; Perinephric soft tissue stranding on imaging. If no further source then likely can discontinue antibiotics and monitor
-Dilaudid prn for pain
-nephrology following; Discussed with nephrology. MRI abdomen ordered, pending
- CT with impression of Polycystic kidney disease. Innumerable bilateral simple and complex/hyperdense cysts. No renal or ureteral calculus and no obstructive uropathy.On the right, there is a linear band of perinephric soft tissue stranding and
thickening of Gerota's fascia adjacent to the anterior mid pole and lower pole the right kidney. This could be related to infection/inflammation in the proper clinical setting, or perhaps related to cyst rupture.
In the anterior lower pole of the right kidney, a low-attenuation mass measuring 6.3 cm transverse is demonstrated, with internal rounded component of increased attenuation measuring 2.6 cm. This could represent a blood clot within a hemorrhagic
cyst. A mass with a solid internal component would be difficult to exclude with certainty. Recommend follow-up nonemergent MRI characterization.
urine cx; Ua doesnt seem to be impressive. urine cx no growth
hx of kidney stones; denies dysuria or hematuria
# Essential hypertension
- At present hold lisinopril
# Hyperlipidemia
- Statin, fenofibrate continued
# Gout
- Allopurinol continued
hx of umbilical hernia repair
monitor
# Anxiety
- Sertraline continued
# GERD
- PPI continued
# DVT prophylaxis
- SCDs CODE STATUS, pharm ppx if MRI stable
# CODE STATUS
- Full code
Anticipated Discharge: 24 - 48 hours
Subjective/Interval History
-
Date of Service: February 10, 2025
continues to have pain
Objective Data
-
Labs:
Laboratory Results
02/10/25
09:16
WBC 7.9
Hgb 11.8 L
Hct 35.9 L
Plt Count 173
Sodium 140
Potassium 4.8
Chloride 110 H
Carbon Dioxide 24
BUN 41 H
Creatinine 2.6 H
Glucose 137 H
Calcium 8.5
Vital Signs:
Vital Signs
Temp Pulse Resp BP Pulse Ox
97.9 F 70 16 122/75 97
02/10/25 07:05 02/10/25 07:05 02/10/25 07:05 02/10/25 07:05 02/10/25 07:05
I&O
02/09/25 02/10/25 02/11/25
06:59 06:59 06:59
Intake Total 3000 / 3000 4320 / 4320
Balance 3000 / 3000 4320 / 4320
[2025-02-10] MEDS: SENOKOT-S 1 TABLET PO (13:20)
[2025-02-10 15:05] VITALS: BP 121/78
--- NOTE | 2025-02-10 15:08 | CM ---
CM following re: discharge planning.
Reviewed pt's chart, met with pt.
Per chart review, MRI for abdomen today, nephrology following.
Per UR CM pt's admissions has been upgraded to inpatient. Pt has been notified.
Pt lives with fiance in a condo, no steps to enter, has 2 supportive children and pt is independent in all areas [employer], works from home, dives.
D/C plan: home with anticipated no needs.
CM will follow with discharge plan updates as hospitalization progresses
--- NOTE | 2025-02-10 16:58 | W.PN.NEPH.PH ---
Today's Communication / Plan
-
pain control and hydration
Assessment/Plan
-
Impression:
Abdominal and right flank pain: Suspected due to ruptured cyst
Polycystic kidney disease on chronic tolvaptan therapy
CKD stage IV
Hypertension
Dyslipidemia
GERD
Plan
-Creatinine better at 2.6
MRI abd noted, suspect hemorrhagic cyst in right kidney lower pole likely the cause of his pain
UA with out UTI and cx neg
BP stable on ACEI
cont IVF and pain control
try to switch to po pain meds per primary
d/c plan soon when pain controlled
d/w pt and at bedside
-
-
Date of Service: February 10, 2025
CC / HPI / ROS
-
Chief Complaint:
CKD stage IV polycystic kidney disease
Abdominal pain
History of Present Illness:
Creatinine better at 2.6
Blood pressure stable on lisinopril
Hemoglobin stable
Review of Systems:
Right anterior abdominal pain persist
No macroscopic hematuria
No fevers
No chest pain or shortness of breath
Labs
-
Labs:
WBC 7.9 10^3/uL (4.8-10.8) 02/10/25 09:16
RBC 3.86 10^6/uL (4.70-6.10) L 02/10/25 09:16
Hgb 11.8 g/dL (13.0-18.0) L 02/10/25 09:16
Hct 35.9 % (39.0-52.0) L 02/10/25 09:16
Plt Count 173 10^3/uL (130-400) 02/10/25 09:16
Sodium 140 mmol/L (135-145) 02/10/25 09:16
Potassium 4.8 mmol/L (3.5-5.1) 02/10/25 09:16
Chloride 110 mmol/L (98-107) H 02/10/25 09:16
Carbon Dioxide 24 mmol/L (22-30) 02/10/25 09:16
BUN 41 mg/dl (9-20) H 02/10/25 09:16
Creatinine 2.6 mg/dL (0.7-1.3) H 02/10/25 09:16
eGFR 29.50 02/10/25 09:16
Glucose 137 mg/dl (70-99) H 02/10/25 09:16
Calcium 8.5 mg/dl (8.4-10.2) 02/10/25 09:16
Albumin 4.5 g/dl (3.5-5.0) 02/07/25 17:34
Physical Exam
-
Vital Signs:
Vital Signs
Temp Pulse Resp BP Pulse Ox
99.1 F 83 16 121/78 96
02/10/25 15:05 02/10/25 15:05 02/10/25 15:05 02/10/25 15:05 02/10/25 15:05
Cardiovascular:: Regular rate and rhythm
Respiratory:: Bilateral: CTA
Lung Excursion:: Normal
Abdomen:: Distended, Soft and Tender (Palpably tender along the right anterior abdominal quadrant, palpable kidney)
Bowel Sounds:: Normal
Extremity Edema:: None: Bilateral:
Powell Catheter: No
[2025-02-10] MEDS: TYLENOL 1000 MG PO (17:02)
[2025-02-10] MEDS: STERILE WATER FOR INJECTION 10 ML IV (20:47)
[2025-02-10] MEDS: ROCEPHIN 1000 MG IV (20:47)
[2025-02-10 23:07] VITALS: BP 119/73
[2025-02-11] MEDS: TYLENOL 1000 MG PO ×4 (00:15→23:07)
[2025-02-11 07:05] VITALS: BP 123/76
[2025-02-11 07:58] LABS: Hematocrit 37.5 % (39.0-52.0); Hemoglobin 12.1 g/dL (13.0-18.0); Mean Corp Hgb Conc. 32.3 g/dL (33.0-37.0); Mean Corpuscular Volume 94.9 fL (80.0-94.0); Nucleated Red Blood Cells % 0 % (-); Platelet Count 203 10^3/uL (130-400); Red Cell Dist. Width 12.6 % (11.5-14.5)
[2025-02-11 08:12] LABS: Blood Urea Nitrogen 41 mg/dl (9-20); Calcium 8.9 mg/dl (8.4-10.2); Carbon Dioxide 25 mmol/L (22-30); Chloride 111 mmol/L (98-107); Estimated Creatinine Clearance 40 ml/min; Glucose 111 mg/dl (70-99); Potassium 4.6 mmol/L (3.5-5.1); Sodium 143 mmol/L (135-145); eGFR 30.92
[2025-02-11] MEDS: ZOLOFT 100 MG PO (09:05)
[2025-02-11] MEDS: TRICOR 145 MG PO (09:05)
[2025-02-11] MEDS: PROTONIX 40 MG PO (09:05)
[2025-02-11] MEDS: LIPITOR 40 MG PO (09:05)
[2025-02-11] MEDS: ZYLOPRIM 100 MG PO (09:06)
[2025-02-11] MEDS: DILAUDID 1 MG IV (12:07)
[2025-02-11] MEDS: NSS 1000 IV (12:10)
--- NOTE | 2025-02-11 12:10 | W.PN.HOSP.TC ---
Today's Communication/Plan
-
Oxycodone introduced.
Discontinued ceftriaxone.
If pain is controlled with oral medications will discharge patient home.
Assessment / Plan
Assessment / Plan
Severe abdominal pain secondary to ruptured right renal cyst
#hxt of stage IV polycystic kidney disease
- MRI of the abdomen shows known polycystic kidney with 6.2 cm benign proteinaceous/hemorrhagic cyst in the anterior lower pole of the right kidney. No enhancement noted.
-Continue with symptomatic treatment for pain. Introduced oral oxycodone.
- No enhancement noted on MRI and urine cultures are negative-discontinue ceftriaxone.
-Blood pressure stable.
- Creatinine improving.
# Essential hypertension
- At present hold lisinopril
# Hyperlipidemia
- Statin, fenofibrate continued
# Gout
- Allopurinol continued
hx of umbilical hernia repair
monitor
# Anxiety
- Sertraline continued
# GERD
- PPI continued
# DVT prophylaxis
- SCDs CODE STATUS, pharm ppx if MRI stable
# CODE STATUS
- Full code
Anticipated Discharge: Within 24 hours
Subjective/Interval History
-
Date of Service: February 11, 2025
Right-sided flank pain better. No hematuria.
No fever or chills. Not constipated.
Objective Data
-
Labs:
Laboratory Results
02/11/25
06:34
WBC 7.4
Hgb 12.1 L
Hct 37.5 L
Plt Count 203
Sodium 143
Potassium 4.6
Chloride 111 H
Carbon Dioxide 25
BUN 41 H
Creatinine 2.5 H
Glucose 111 H
Calcium 8.9
Vital Signs:
Vital Signs
Temp Pulse Resp BP Pulse Ox
98.1 F 72 16 123/76 97
02/11/25 07:05 02/11/25 07:05 02/11/25 07:05 02/11/25 07:05 02/11/25 07:05
I&O
02/10/25 02/11/25 02/12/25
06:59 06:59 06:59
Intake Total 0 / 4320 1979
Balance 4320 / 4320 1979
Physical Exam
-
General: Comfortable
Respiratory: Non Labored Respirations; Negative Accessory Resp Muscle Use
Cardiac: Negative Tachycardic
Neuro: AO x 3
Psych: Calm
Data Reviewed
-
MRI: Report Reviewed by me (Of abdomen)
Labs: Labs Reviewed by me
[2025-02-11] MEDS: ROXICODONE 5 MG PO ×2 (14:48→21:51)
[2025-02-11 15:05] VITALS: BP 130/79
--- NOTE | 2025-02-11 17:34 | W.PN.NEPH.PH ---
Today's Communication / Plan
-
pain control with po meds
Assessment/Plan
-
Impression:
Abdominal and right flank pain: Suspected due to ruptured cyst
Polycystic kidney disease on chronic tolvaptan therapy
CKD stage IV
Hypertension
Dyslipidemia
GERD
Plan
-Creatinine better at 2.5
MRI abd noted, suspect hemorrhagic cyst in right kidney lower pole likely the cause of his pain
UA with out UTI and cx neg and off abx
BP stable on ACEI
pain control with po meds
encourage fluid intake
d/c plan soon when pain controlled
d/w pt
-
-
Date of Service: February 11, 2025
CC / HPI / ROS
-
Chief Complaint:
CKD stage IV polycystic kidney disease
Abdominal pain
History of Present Illness:
Creatinine better at 2.5
Blood pressure stable on lisinopril
Hemoglobin stable
Review of Systems:
Right anterior abdominal pain improving
No macroscopic hematuria
No fevers
No chest pain or shortness of breath
Labs
-
Labs:
WBC 7.4 10^3/uL (4.8-10.8) 02/11/25 06:34
RBC 3.95 10^6/uL (4.70-6.10) L 02/11/25 06:34
Hgb 12.1 g/dL (13.0-18.0) L 02/11/25 06:34
Hct 37.5 % (39.0-52.0) L 02/11/25 06:34
Plt Count 203 10^3/uL (130-400) 02/11/25 06:34
Sodium 143 mmol/L (135-145) 02/11/25 06:34
Potassium 4.6 mmol/L (3.5-5.1) 02/11/25 06:34
Chloride 111 mmol/L (98-107) H 02/11/25 06:34
Carbon Dioxide 25 mmol/L (22-30) 02/11/25 06:34
BUN 41 mg/dl (9-20) H 02/11/25 06:34
Creatinine 2.5 mg/dL (0.7-1.3) H 02/11/25 06:34
eGFR 30.92 02/11/25 06:34
Glucose 111 mg/dl (70-99) H 02/11/25 06:34
Calcium 8.9 mg/dl (8.4-10.2) 02/11/25 06:34
Albumin 4.5 g/dl (3.5-5.0) 02/07/25 17:34
Physical Exam
-
Vital Signs:
Vital Signs
Temp Pulse Resp BP Pulse Ox
98.5 F 77 18 130/79 98
02/11/25 15:05 02/11/25 15:05 02/11/25 15:05 02/11/25 15:05 02/11/25 15:05
Cardiovascular:: Regular rate and rhythm
Respiratory:: Bilateral: CTA
Lung Excursion:: Normal
Abdomen:: Distended, Soft and Tender (Palpably tender along the right anterior abdominal quadrant, palpable kidney)
Bowel Sounds:: Normal
Extremity Edema:: None: Bilateral:
Powell Catheter: No
[2025-02-11 23:00] VITALS: BP 140/78
[2025-02-12 07:00] VITALS: BP 125/82
[2025-02-12 08:01] LABS: Blood Urea Nitrogen 42 mg/dl (9-20); Calcium 9.1 mg/dl (8.4-10.2); Carbon Dioxide 24 mmol/L (22-30); Chloride 110 mmol/L (98-107); Estimated Creatinine Clearance 38 ml/min; Glucose 106 mg/dl (70-99); Potassium 4.9 mmol/L (3.5-5.1); Sodium 143 mmol/L (135-145); eGFR 29.50
[2025-02-12] MEDS: PROTONIX 40 MG PO (08:47)
[2025-02-12] MEDS: LIPITOR 40 MG PO (08:47)
[2025-02-12] MEDS: ZOLOFT 100 MG PO (08:47)
[2025-02-12] MEDS: TYLENOL 1000 MG PO (08:47)
[2025-02-12] MEDS: TRICOR 145 MG PO (08:47)
[2025-02-12] MEDS: ZYLOPRIM 100 MG PO (08:48)
--- NOTE | 2025-02-12 09:39 | W.DCSUMMARY ---
Discharge Summary
Discharge Data
Date of Admission: 02/10/25
Date of Discharge: 02/12/25
-
Pending Results: No
Hospital Course
Primary diagnosis:
Right flank pain from hemorrhagic cyst
Polycystic kidney disease chronic tolvaptan therapy
Secondary diagnosis:
Chronic kidney disease stage IV
Essential hypertension
Hyperlipidemia
Gastroesophageal reflux disease
Hospital course:
Patient presented with abdominal pain and right flank pain and on MRI imaging noted to have hemorrhagic complication of one of his cyst on the right side. He was admitted and treated for for pain. There was no hematuria. No concern of UTI. Blood
pressure was under goal. His creatinine which is 3.1 was better at the time of discharge. It was 2.6 today. Normally is around 2.9. He has a chronic kidney disease stage IV. He is on chronic tolvaptan therapy for his polycystic kidney disease.
Today he is alert and oriented. Afebrile. Blood pressure 125/82. Chest clear. Abdomen soft. Creatinine 2.6.
Since last evening was only using oxycodone and no requirement for IV pain medication. Will discharge patient home on Tylenol and oxycodone. Advised to use oxycodone sparingly. MiraLAX prescription also provided to use as needed for constipation.
Advised to keep the blood pressure under control. Advised he could go back on his lisinopril on discharge. Also advised to keep salt intake less than 2 g and consider maintaining ideal body weight.
Portions of this chart may have been created with voice recognition software. Occasional wrong word or 'sound alike' substitutions may have occurred due to the inherent limitations of voice recognition software.
Consultants on board:
Nephrology-Wei Kapadia
Discharge Plan
-
Patient Disposition: Home (Routine Discharge)
Discharge Diagnosis/Procedures: Pain from hemorrhagic cyst; polycystic kidney disease; chronic kidney disease
Diet: 2 Gram Sodium
Activity: As tolerated
Driving Restrictions: As prior to admission
Referrals:
Conrad Luna MD [Active, Nephrology] - in one to two weeks
UNKNOWN,NO INTERVIEW [Family Provider]
Prescriptions:
New
polyethylene glycol 3350 17 gram Powder In Packet
17 g PO DAILYPRN PRN (Reason: constipation) Qty: 14 0RF
acetaminophen [Tylenol Extra Strength] 500 mg Tablet
500 mg PO Q6H PRN (Reason: Pain) Qty: 1 0RF
oxycodone 5 mg Tablet
5 mg PO Q4HPRN PRN (Reason: moderate pain) Qty: 20 0RF
Continued
atorvastatin 40 mg tablet
40 mg PO DAILY
lisinopril 20 mg tablet
20 mg PO DAILY
sertraline 100 mg tablet
100 mg PO DAILY
allopurinol 100 mg tablet
100 mg PO DAILY
pantoprazole 40 mg tablet,delayed release (DR/EC)
40 mg PO DAILY
fenofibric acid (choline) 135 mg capsule,delayed release(DR/EC)
135 mg PO DAILY
tolvaptan (polycys kidney dis) [Jynarque] 60 mg (AM)/ 30 mg (PM) tablets, sequential
1 ea PO DIRECTED
Rx Instructions:
60 mg in am and 30mg in PM
Discharge Orders:
Discharge Patient (As Directed); Ordered 02/12/25
Ordered By: Mitch Fu
Discharge Date and Time
Print Language: OMANI
--- NOTE | 2025-02-12 10:43 | CM ---
Plan for patient to d/c home today
No CM needs at this time
Plan: Home, no needs
[2025-02-12 11:23] VITALS: BP 137/91
--- NOTE | 2025-02-12 11:31 | W.PN.NEPH.PH ---
Today's Communication / Plan
-
ok for d/c and f/u Dr Funes
Assessment/Plan
-
Impression:
Abdominal and right flank pain: Suspected due to ruptured cyst
Polycystic kidney disease on chronic tolvaptan therapy
CKD stage IV
Hypertension
Dyslipidemia
GERD
Plan
-Creatinine better at 2.6
MRI abd noted, suspect hemorrhagic cyst in right kidney lower pole likely the cause of his pain
UA with out UTI and cx neg and off abx
BP stable on ACEI
pain control with po meds
encourage fluid intake
d/c plan
d/w pt f/u Dr Funes
-
-
Date of Service: February 12, 2025
CC / HPI / ROS
-
Chief Complaint:
CKD stage IV polycystic kidney disease
Abdominal pain
History of Present Illness:
Creatinine better at 2.6
Blood pressure stable on lisinopril
Hemoglobin stable
Review of Systems:
Right anterior abdominal pain improving
No macroscopic hematuria
No fevers
No chest pain or shortness of breath
Labs
-
Labs:
WBC 7.4 10^3/uL (4.8-10.8) 02/11/25 06:34
RBC 3.95 10^6/uL (4.70-6.10) L 02/11/25 06:34
Hgb 12.1 g/dL (13.0-18.0) L 02/11/25 06:34
Hct 37.5 % (39.0-52.0) L 02/11/25 06:34
Plt Count 203 10^3/uL (130-400) 02/11/25 06:34
Sodium 143 mmol/L (135-145) 02/12/25 06:35
Potassium 4.9 mmol/L (3.5-5.1) 02/12/25 06:35
Chloride 110 mmol/L (98-107) H 02/12/25 06:35
Carbon Dioxide 24 mmol/L (22-30) 02/12/25 06:35
BUN 42 mg/dl (9-20) H 02/12/25 06:35
Creatinine 2.6 mg/dL (0.7-1.3) H 02/12/25 06:35
eGFR 29.50 02/12/25 06:35
Glucose 106 mg/dl (70-99) H 02/12/25 06:35
Calcium 9.1 mg/dl (8.4-10.2) 02/12/25 06:35
Albumin 4.5 g/dl (3.5-5.0) 02/07/25 17:34
Physical Exam
-
Vital Signs:
Vital Signs
Temp Pulse Resp BP Pulse Ox
98.4 F 96 20 137/91 98
02/12/25 11:23 02/12/25 11:23 02/12/25 11:23 02/12/25 11:23 02/12/25 11:23
Cardiovascular:: Regular rate and rhythm
Respiratory:: Bilateral: CTA
Lung Excursion:: Normal
Abdomen:: Distended, Soft and Tender (Palpably tender along the right anterior abdominal quadrant, palpable kidney)
Bowel Sounds:: Normal
Extremity Edema:: None: Bilateral:
Powell Catheter: No
== END 2025-02-12 11:30 | disposition home or self-care (01) | DRG 700 ==
LOC: 2 NORTH 08:49
PROVIDERS: Emergency Medicine; Internal Medicine; Registered Nurse; ADMITTING PHYSICIAN Internal Medicine; ATTENDING PHYSICIAN Internal Medicine; EMERGENCY PHYSICIAN Emergency Medicine; OTHER PHYSICIAN Specialist
DX: N28.1 Cyst of kidney, acquired (principal); N20.0 Calculus of kidney; N17.9 Acute kidney failure, unspecified; N18.4 Chronic kidney disease, stage 4 (severe); M10.9 Gout, unspecified; F41.9 Anxiety disorder, unspecified; K21.9 Gastro-esophageal reflux disease without esophagitis; I15.9 Secondary hypertension, unspecified; Z79.899 Other long term (current) drug therapy; Z87.442 Personal history of urinary calculi
CPT/HCPCS: 74176; 74183; 80048; 80053; 81003; 81015; 83690; 85025; 85027; 87086; 96374; 96375; 99284; A9575